=== PATIENT | male | born 1995 | race Caucasian/White ===

== ENCOUNTER → 2020-12-14 17:54 | Outpatient (CLI) | payer OTHER, SELFPAY ==
[2020-12-14 18:42] LABS: COVID19 -Nasal RAPID Negative (Negative)
== END ==
PROVIDERS: PCP Family Medicine; Referring Provider Nurse Practitioner Family; Visit Provider Nurse Practitioner Family
DX: Z20.822 Contact with and (suspected) exposure to COVID-19 (principal); J02.9 Acute pharyngitis, unspecified; R05 Cough
CPT/HCPCS: 87635